=== PATIENT | female | born 1970 | race Caucasian/White ===

== ENCOUNTER 2023-11-20 13:45 | Emergency (ER) | payer BC, SELFPAY ==
[2023-11-20] VITALS (20 sets, daily range): BP systolic 105–145; BP diastolic 56–83; PULSE 106–131; RESP 16–34; TEMP 35.9; O2SAT 93–98; BMI 28.8
--- NOTE | 2023-11-20 14:09 | DI.RAD.S_ITS ---
PROCEDURE: XR CHEST 1V INDICATIONS: suspected sepsis TECHNIQUE: One view of the chest was acquired. COMPARISON: None. FINDINGS: Surgical changes and devices: None. Lungs and pleura: Lungs are clear. No pleural effusions or pneumothorax. Mediastinum: Mediastinal contours appear normal. Heart size is normal. Bones and chest wall: No suspicious bony lesions. Overlying soft tissues appear unremarkable. IMPRESSION: No acute cardiopulmonary abnormality is seen. Dictated by: Terry Cason M.D. on 11/20/2023 at 14:45 Approved by: Terry Cason M.D. on 11/20/2023 at 14:45
[2023-11-20 14:23] LABS: Hematocrit 43.1 % (36-46); Hemoglobin 14.4 g/dL (12.0-16.0); Mean Corpuscular HGB Conc 33.4 % (30-36); Mean Corpuscular Hemoglobin 30.6 PG (26-34); Mean Corpuscular Volume 91.7 fL (80-100); Platelet Count 166 X10^3/uL (150-400); Red Cell Distribution Width 15.1 % (11.6-14.8)
[2023-11-20 14:26] LABS: Add Manual Diff / Slide Review YES; White Blood Cell Count 104.7 X10^3/uL (4.5-11.0)
[2023-11-20 14:37] LABS: INR 1.2 (0.9-1.3); Prothrombin Time 13.6 SECONDS (9.4-12.5)
[2023-11-20 14:40] LABS: PTT Partial Thromboplastin Tim 32 SECONDS (25.1-36.5)
[2023-11-20 14:47] LABS: Alanine Aminotransferase 211 IU/L (<35); Albumin 3.7 g/dL (3.5-5.0); Albumin Globulin Ratio 1.1 (1.0-2.8); Alkaline Phosphatase 509 U/L (38-126); Aspartate Aminotransferase 276 IU/L (14-36); BUN Creatinine Ratio 5.9 (6-22); Bilirubin Total 1.4 mg/dL (0.2-1.3); Blood Urea Nitrogen 6 mg/dL (7-17); Calcium 8.6 mg/dL (8.4-10.2); Carbon Dioxide 27 mmol/L (22-32); Chloride 98 mmol/L (98-107); Estimated Glomerular Filt Rate > 60 mL/min (>60); Globulin 3.5 g/dL (1.7-4.1); Glucose 96 mg/dL (70-100); HEMOLYSIS < 15 (0-50); Lipase 40 U/L (23-300); Potassium 4.6 mmol/L (3.4-5.1); Sodium 136 mmol/L (137-145); Total Protein 7.2 g/dL (6.3-8.2)
[2023-11-20 15:03] LABS: Procalcitonin 0.313 ng/mL (<0.5)
[2023-11-20 15:04] LABS: Lymphocytes Percent Manual 19.5 % (25-45); Monocytes Percent Manual 50.5 % (2-11); Neutrophils Absolute Manual 30363 /uL (3000-5900); Total Cells Counted 200
[2023-11-20 15:08] LABS: RBC Morphology Normal Morphology; Rouleaux 1+; Smudge Cells 4+
[2023-11-20] MEDS: SODIUM CHLORIDE 0.9% 1,000 ML 1000 ML IV ×3 (15:10→21:36)
[2023-11-20 15:20] LABS: Lactate (Lactic Acid) 2.8 mmol/L (0.7-2.1)
[2023-11-20 16:04] LABS: Strep Grp A by PCR Rapid Negative (Negative)
--- NOTE | 2023-11-20 16:05 | PC.NURSE ---
Pt has diffuse rash to trunk dry and itchy
--- NOTE | 2023-11-20 16:39 | ED.NAVMDI ---
HPI - Nausea/Vomiting/Diarrhea <Aj Mahoney MD - Last Filed: 11/21/23 20:42> General Chief complaint: Nausea/Vomiting/Diarrhea Stated complaint: severe dehydrated, vomiting Time Seen by Provider: 11/20/23 16:39 Source: patient Mode of arrival: Ambulatory History of Present Illness HPI Narrative: 53-year-old female who has residence in [place], travels seasonally with her to sail in in the [facility], most recently sailing in the [facility], has had ongoing sore throat symptoms for the least the last 1 week, tonsils swollen, they had telemedicine consultation about 1 month ago with clinical diagnosis of possible strep throat infection, penicillin prescribed for 10 days which was completed about 2 weeks ago, since that time having persisting sore throat and presented to the emergency department at [facility] strep screen and Monospot were negative at that time, now having painful itchy rash for the last 10 days, truncal, some redness around the eyes, sore throat symptoms, sensation of tongue swelling. No known history of cancers or elevated white blood cell count before. No recent steroid medications. She does not have nausea or vomiting or diarrhea. She has not have chest pain or shortness of breath. She has not had cancers of the lymphatic system known before. She does not believe she has had elevated white blood cell count labs before. Related Data Allergies Allergy/AdvReac Type Severity Reaction Status Date / Time No Known Drug Allergies Allergy Verified 11/20/23 13:59 Review of Systems <Aj Mahoney MD - Last Filed: 11/21/23 20:42> Review of Systems Narrative: see HPI Patient History <Aj Mahoney MD - Last Filed: 11/21/23 20:42> Social History Smoking Status: Never smoker Smoking Status: Never smoker alcohol intake frequency: a few times a week Substance Use Type: does not use Exam <Aj Mahoney MD - Last Filed: 11/21/23 20:42> Initial Vital Signs Initial Vital Signs: Vital Signs Temperature 96.6 F L 11/20/23 13:59 Pulse Rate 131 H 11/20/23 13:59 Respiratory Rate 16 11/20/23 13:59 Blood Pressure 117/57 L 11/20/23 13:59 Pulse Oximetry 97 11/20/23 13:59 Oxygen Delivery Method Room Air 11/20/23 13:59 <Agatha Walton MD - Last Filed: 11/25/23 08:39> Initial Vital Signs Initial Vital Signs: Vital Signs Temperature 96.6 F L 11/20/23 13:59 Pulse Rate 131 H 11/20/23 13:59 Respiratory Rate 16 11/20/23 13:59 Blood Pressure 117/57 L 11/20/23 13:59 Pulse Oximetry 97 11/20/23 13:59 Oxygen Delivery Method Room Air 11/20/23 13:59 Course <Aj Mahoney MD - Last Filed: 11/21/23 20:42> Orders Ordered: Discontinued Medications Hydromorphone HCl (Hydromorphone 0.5 Mg Inj) 0.5 mg IV Q15MIN PRN PRN Reason: Pain, Sodium Chloride (Normal Saline 0.9%) 1,000 mls @ 1,000 mls/hr IV BOLUS ONE Stop: 11/20/23 15:08 Last Infusion: 11/20/23 15:54 Dose: Infused Documented By: [facility] Admin: 11/20/23 15:10 Dose: 1,000 mls/hr Documented By: [facility] Sodium Chloride (Normal Saline 0.9%) 1,000 mls @ 1,000 mls/hr IV BOLUS ONE Stop: 11/20/23 16:52 Last Infusion: 11/20/23 17:07 Dose: Infused Documented By: [facility] Admin: 11/20/23 15:54 Dose: 1,000 mls/hr Documented By: [facility] Ceftriaxone Sodium 1,000 mg/ (Sodium Chloride) 100 mls @ 200 mls/hr IV NOW ONE Stop: 11/20/23 16:41 Last Infusion: 11/20/23 17:20 Dose: Infused Documented By: [facility] Admin: 11/20/23 16:48 Dose: 200 mls/hr Documented By: [facility] Sodium Chloride (Normal Saline 0.9%) 1,000 mls @ 1,000 mls/hr IV BOLUS ONE Stop: 11/20/23 22:02 Last Infusion: 11/20/23 22:53 Dose: Infused Documented By: [facility] Admin: 11/20/23 21:36 Dose: 1,000 mls/hr Documented By: [facility] Lamotrigine (Lamotrigine 100 Mg Tablet) 100 mg PO NOW ONE Stop: 11/20/23 21:33 Last Admin: 11/20/23 22:16 Dose: Not Given Documented By: ELIZABETH Lorazepam (Lorazepam 2 Mg/Ml Inj) 0.5 mg IV NOW ONE Stop: 11/20/23 21:33 Last Admin: 11/20/23 21:45 Dose: 0.5 mg Documented By: ELIZABETH Methylprednisolone (Methylprednisolone 125 Mg/2 Ml Vial) 125 mg IV NOW ONE Stop: 11/20/23 21:03 Last Admin: 11/20/23 21:35 Dose: 125 mg Documented By: ELIZABETH Methylprednisolone (Methylprednisolone 125 Mg/2 Ml Vial) 60 mg IV NOW ONE Stop: 11/21/23 07:16 Last Admin: 11/21/23 07:42 Dose: 60 mg Documented By: KONSTANTIN Methylprednisolone (Methylprednisolone 125 Mg/2 Ml Vial) 80 mg IV NOW ONE Stop: 11/21/23 14:33 Last Admin: 11/21/23 14:59 Dose: 80 mg Documented By: ALIA Ondansetron HCl (Ondansetron 4 Mg/2 Ml Inj) 4 mg IV NOW PRN PRN Reason: Nausea And Vomiting Ondansetron HCl (Ondansetron 4 Mg Odt) 4 mg SL NOW PRN PRN Reason: Nausea And Vomiting Sertraline HCl (Sertraline 50 Mg Tablet) 25 mg PO BEDTIME PRISCILA Last Admin: 11/20/23 22:22 Dose: 25 mg Documented By: ELIZABETH Vital Signs Vital signs: Vital Signs - 8 hr 11/21/23 13:00 11/21/23 13:02 11/21/23 13:02 Pulse Rate 110 H 107 H Respiratory Rate 24 22 Blood Pressure 133/70 Pulse Oximetry 91 95 11/21/23 14:00 11/21/23 14:26 11/21/23 14:26 Pulse Rate 106 H 117 H Respiratory Rate 25 H 29 H Blood Pressure 127/84 Pulse Oximetry 94 94 <Agatha Walton MD - Last Filed: 11/25/23 08:39> Orders Ordered: Discontinued Medications Hydromorphone HCl (Hydromorphone 0.5 Mg Inj) 0.5 mg IV Q15MIN PRN PRN Reason: Pain, Sodium Chloride (Normal Saline 0.9%) 1,000 mls @ 1,000 mls/hr IV BOLUS ONE Stop: 11/20/23 15:08 Last Infusion: 11/20/23 15:54 Dose: Infused Documented By: [facility] Admin: 11/20/23 15:10 Dose: 1,000 mls/hr Documented By: [facility] Sodium Chloride (Normal Saline 0.9%) 1,000 mls @ 1,000 mls/hr IV BOLUS ONE Stop: 11/20/23 16:52 Last Infusion: 11/20/23 17:07 Dose: Infused Documented By: [facility] Admin: 11/20/23 15:54 Dose: 1,000 mls/hr Documented By: [facility] Ceftriaxone Sodium 1,000 mg/ (Sodium Chloride) 100 mls @ 200 mls/hr IV NOW ONE Stop: 11/20/23 16:41 Last Infusion: 11/20/23 17:20 Dose: Infused Documented By: [facility] Admin: 11/20/23 16:48 Dose: 200 mls/hr Documented By: [facility] Sodium Chloride (Normal Saline 0.9%) 1,000 mls @ 1,000 mls/hr IV BOLUS ONE Stop: 11/20/23 22:02 Last Infusion: 11/20/23 22:53 Dose: Infused Documented By: [facility] Admin: 11/20/23 21:36 Dose: 1,000 mls/hr Documented By: ELIZABETH Lamotrigine (Lamotrigine 100 Mg Tablet) 100 mg PO NOW ONE Stop: 11/20/23 21:33 Last Admin: 11/20/23 22:16 Dose: Not Given Documented By: ELIZABETH Lorazepam (Lorazepam 2 Mg/Ml Inj) 0.5 mg IV NOW ONE Stop: 11/20/23 21:33 Last Admin: 11/20/23 21:45 Dose: 0.5 mg Documented By: ELIZABETH Methylprednisolone (Methylprednisolone 125 Mg/2 Ml Vial) 125 mg IV NOW ONE Stop: 11/20/23 21:03 Last Admin: 11/20/23 21:35 Dose: 125 mg Documented By: ELIZABETH Methylprednisolone (Methylprednisolone 125 Mg/2 Ml Vial) 60 mg IV NOW ONE Stop: 11/21/23 07:16 Last Admin: 11/21/23 07:42 Dose: 60 mg Documented By: KONSTANTIN Methylprednisolone (Methylprednisolone 125 Mg/2 Ml Vial) 80 mg IV NOW ONE Stop: 11/21/23 14:33 Last Admin: 11/21/23 14:59 Dose: 80 mg Documented By: ALIA Ondansetron HCl (Ondansetron 4 Mg/2 Ml Inj) 4 mg IV NOW PRN PRN Reason: Nausea And Vomiting Ondansetron HCl (Ondansetron 4 Mg Odt) 4 mg SL NOW PRN PRN Reason: Nausea And Vomiting Sertraline HCl (Sertraline 50 Mg Tablet) 25 mg PO BEDTIME [facility] Last Admin: 11/20/23 22:22 Dose: 25 mg Documented By: [facility] Vital Signs Vital signs: Vital Signs - 8 hr 11/21/23 13:00 11/21/23 13:02 11/21/23 13:02 Pulse Rate 110 H 107 H Respiratory Rate 24 22 Blood Pressure 133/70 Pulse Oximetry 91 95 11/21/23 14:00 11/21/23 14:26 11/21/23 14:26 Pulse Rate 106 H 117 H Respiratory Rate 25 H 29 H Blood Pressure 127/84 Pulse Oximetry 94 94 MDM - Nausea/Vomiting/Diarrhea <Aj Mahoney MD - Last Filed: 11/21/23 20:42> Lab Data Attestation: I reviewed the patient's lab results. 11/21/23 05:55 11/21/23 05:55 Labs: Lab Results 11/20/23 11/20/23 11/20/23 Range/Units 10:15 14:05 14:41 WBC 104.7 H* (4.5-11.0) X10^3/uL RBC 4.70 (4.0-5.2) X10^6/uL Hgb 14.4 (12.0-16.0) g/dL Hct 43.1 (36-46) % MCV 91.7 (80-100) fL MCH 30.6 (26-34) PG MCHC 33.4 (30-36) % RDW 15.1 H (11.6-14.8) % Plt Count 166 (150-400) X10^3/uL Neut % (Auto) Not Reportable Lymph % (Auto) Not Reportable [place] % (Auto) Not Reportable Eos % (Auto) Not Reportable Baso % (Auto) Not Reportable Neut # (Auto) (1062-4705) /uL Lymph # (Auto) Not Reportable [place] # (Auto) Not Reportable Eos # (Auto) (0-450) /uL Baso # (Auto) Not Reportable Total Counted 200 Seg Neutrophils % 29.0 L (38-70) % Lymphocytes % (Manual) 19.5 L (25-45) % Atypical Lymphs % 1.0 H ( - 0) % Monocytes % (Manual) 50.5 H (2-11) % Neutrophils # (Manual) 28275 H (5073-1797) /uL Smudge Cells 4+ H RBC Morphology Normal morphology Anisocytosis Rouleaux 1+ H Smear Path Review PT 13.6 H (9.4-12.5) SECONDS INR 1.2 (0.9-1.3) APTT 32 (25.1-36.5) SECONDS Fibrinogen (238-498) mg/dL Sodium 136 L (137-145) mmol/L Potassium 4.6 (3.4-5.1) mmol/L Chloride 98 (98-107) mmol/L Carbon Dioxide 27 (22-32) mmol/L BUN 6 L (7-17) mg/dL Creatinine 1.01 (0.52-1.04) mg/dL Estimated GFR > 60 (>60) mL/min BUN/Creatinine Ratio 5.9 L (6-22) Glucose 96 (70-100) mg/dL Lactate 2.8 H (0.7-2.1) mmol/L Uric Acid (2.5-6.2) mg/dL Calcium 8.6 (8.4-10.2) mg/dL Total Bilirubin 1.4 H (0.2-1.3) mg/dL AST 276 H (14-36) IU/L ALT 211 H (<35) IU/L Alkaline Phosphatase 509 H (38-126) U/L Lactate Dehydrogenase (120-246) U/L C-Reactive Protein (<1.0) mg/dL Total Protein 7.2 (6.3-8.2) g/dL Albumin 3.7 (3.5-5.0) g/dL Globulin 3.5 (1.7-4.1) g/dL Albumin/Globulin Ratio 1.1 (1.0-2.8) Lipase 40 (23-300) U/L Procalcitonin 0.313 (<0.5) ng/mL Ur Bilirubin Confirm Positive H (Negative) Urine RBC None seen (0-5/HPF) Urine WBC 5-10/hpf H (0-5/HPF) Ur Squamous Epith Cells 5-10 /hpf H (0-5/HPF) Ur Transition Epith Cell 1-5/hpf (0-5/HPF) Urine Bacteria Moderate (10-30) H (None) Hyaline Casts 30-100/lpf (None) Vol Urine Centrifuged Low vol <10ml (spun) A Leuk/Lymph Viability Leuk/Lym Sample Descrip Leuk/Lym Gating Strategy Leuk/Lym Comment Leuk/Lym Immunophen Prof Leuk/Lym Phenotype Chart L/L Sign Pathologist CLL Flow Interpret A.calcoaceticus-baumannii cmplx PCR (Not Detect) Chlamy pneumoniae PCR (Not Detect) Adenovirus (PCR) (Not Detect) Bacteroides fragilis (Not Detect) B.parapertussis DNA PCR (Not Detecte) Wanda albicans (PCR) (Not Detect) Wanda auris (PCR) (Not Detect) C. glabrata (PCR) (Not Detect) C. krusei (PCR) (Not Detect) C. parapsilosis (PCR) (Not Detect) C. tropicalis (PCR) (Not Detect) Coronavirus OC43 (PCR) (Not Detect) Coronavirus HKU1 (PCR) (Not Detect) Coronavirus 229E (PCR) (Not Detect) SARS-CoV-2 (PCR) (Not Detecte) Coronavirus NL63 (PCR) (Not Detect) C. neoform/gattii (PCR) (Not Detect) Enterobacterales (PCR) (Not Detect) E. cloacae complex PCR (Not Detect) Enterococc faecalis PCR (Not Detect) Enterococc faecium PCR (Not Detect) E. coli (PCR) (Not Detect) H. influenzae (PCR) (Not Detect) Hepatitis A IgM Ab (Negative) Hep Bs Antigen (Negative) Hep B Core IgM Ab (Negative) Hepatitis C Antibody (Non Reactive) Hep C Ab Signal/Cutoff (.) Human Metapneumovir PCR (Not Detect) Influenza Type A (PCR) (Not Detect) Influenza Type B (PCR) (Not Detect) Klebsiella aerogenes (PCR) (Not Detect) Klebsiella oxytoca PCR (Not Detect) Klebsiella pneumoniae (Not Detect) List. monocytogenes PCR (Not Detect) M. pneumoniae (PCR) (Not Detect) N. meningitidis (PCR) (Not Detect) Parainfluenza 1 (PCR) (Not Detect) Parainfluenza 2 (PCR) (Not Detect) Parainfluenza 3 (PCR) (Not Detect) Parainfluenza 4 (PCR) (Not Detect) Proteus species (PCR) (Not Detect) RSV (PCR) (Not Detect) Entero/Rhino (PCR) (Not Detect) Salmonella spp. (PCR) (Not Detect) Serratia marcescens PCR (Not Detect) Staphylococcus sp PCR (Not Detect) Staph aureus (PCR) (Not Detect) mecA/C & MREJ Resist Gene (Not Detect) mecA/C-Methicil Resis Gene (Not Detect) mcr-1 Colistin Res Gene PCR (Not Detect) Staph epidermidis (PCR) (Not Detect) Staph lugdunensis PCR (Not Detect) S. maltophilia (PCR) (Not Detect) Streptococcus sp PCR (Not Detect) Group A Strep (PCR) (Not Detect) Strep agalactiae (PCR) (Not Detect) Strep pneumoniae (PCR) (Not Detect) P. aeruginosa (PCR) (Not Detect) Joelle/B-Vanco Res Genes (Not Detect) blaIMP Car res Gene PCR (Not Detect) KPC-Carbap Res Gene PCR (Not Detect) blaNDM Car Res Gene PCR (Not Detect) OXA-48 Carbapenem Resis Gene (PCR) (Not Detect) blaVIM Car Res Gene PCR (Not Detect) CTX-M Gene Resistance (PCR) (Not Detect) CLL (FISH) Add Info CLL Prog Comp Assess 11/20/23 11/20/23 11/20/23 Range/Units 14:51 15:15 15:50 WBC (4.5-11.0) X10^3/uL RBC (4.0-5.2) X10^6/uL Hgb (12.0-16.0) g/dL Hct (36-46) % MCV (80-100) fL MCH (26-34) PG MCHC (30-36) % RDW (11.6-14.8) % Plt Count (150-400) X10^3/uL Neut % (Auto) Lymph % (Auto) [place] % (Auto) Eos % (Auto) Baso % (Auto) Neut # (Auto) (2965-0558) /uL Lymph # (Auto) [place] # (Auto) Eos # (Auto) (0-450) /uL Baso # (Auto) Total Counted Seg Neutrophils % (38-70) % Lymphocytes % (Manual) (25-45) % Atypical Lymphs % ( - 0) % Monocytes % (Manual) (2-11) % Neutrophils # (Manual) (8468-7829) /uL Smudge Cells RBC Morphology Anisocytosis Rouleaux Smear Path Review PT (9.4-12.5) SECONDS INR (0.9-1.3) APTT (25.1-36.5) SECONDS Fibrinogen (238-498) mg/dL Sodium (137-145) mmol/L Potassium (3.4-5.1) mmol/L Chloride (98-107) mmol/L Carbon Dioxide (22-32) mmol/L BUN (7-17) mg/dL Creatinine (0.52-1.04) mg/dL Estimated GFR (>60) mL/min BUN/Creatinine Ratio (6-22) Glucose (70-100) mg/dL Lactate (0.7-2.1) mmol/L Uric Acid (2.5-6.2) mg/dL Calcium (8.4-10.2) mg/dL Total Bilirubin (0.2-1.3) mg/dL AST (14-36) IU/L ALT (<35) IU/L Alkaline Phosphatase (38-126) U/L Lactate Dehydrogenase (120-246) U/L C-Reactive Protein (<1.0) mg/dL Total Protein (6.3-8.2) g/dL Albumin (3.5-5.0) g/dL Globulin (1.7-4.1) g/dL Albumin/Globulin Ratio (1.0-2.8) Lipase (23-300) U/L Procalcitonin (<0.5) ng/mL Ur Bilirubin Confirm (Negative) Urine RBC (0-5/HPF) Urine WBC (0-5/HPF) Ur Squamous Epith Cells (0-5/HPF) Ur Transition Epith Cell (0-5/HPF) Urine Bacteria (None) Hyaline Casts (None) Vol Urine Centrifuged Leuk/Lymph Viability Leuk/Lym Sample Descrip Leuk/Lym Gating Strategy Leuk/Lym Comment Leuk/Lym Immunophen Prof Leuk/Lym Phenotype Chart L/L Sign Pathologist CLL Flow Interpret A.calcoaceticus-baumannii cmplx PCR Not detected (Not Detect) Chlamy pneumoniae PCR Not detected (Not Detect) Adenovirus (PCR) Not detected (Not Detect) Bacteroides fragilis Not detected (Not Detect) B.parapertussis DNA PCR Not detected (Not Detecte) Wanda albicans (PCR) Not detected (Not Detect) Wanda auris (PCR) Not detected (Not Detect) C. glabrata (PCR) Not detected (Not Detect) C. krusei (PCR) Not detected (Not Detect) C. parapsilosis (PCR) Not detected (Not Detect) C. tropicalis (PCR) Not detected (Not Detect) Coronavirus OC43 (PCR) Not detected (Not Detect) Coronavirus HKU1 (PCR) Not detected (Not Detect) Coronavirus 229E (PCR) Not detected (Not Detect) SARS-CoV-2 (PCR) Not detected (Not Detecte) Coronavirus NL63 (PCR) Not detected (Not Detect) C. neoform/gattii (PCR) Not detected (Not Detect) Enterobacterales (PCR) Not detected (Not Detect) E. cloacae complex PCR Not detected (Not Detect) Enterococc faecalis PCR Not detected (Not Detect) Enterococc faecium PCR Not detected (Not Detect) E. coli (PCR) Not detected (Not Detect) H. influenzae (PCR) Not detected (Not Detect) Hepatitis A IgM Ab (Negative) Hep Bs Antigen (Negative) Hep B Core IgM Ab (Negative) Hepatitis C Antibody (Non Reactive) Hep C Ab Signal/Cutoff (.) Human Metapneumovir PCR Not detected (Not Detect) Influenza Type A (PCR) Not detected (Not Detect) Influenza Type B (PCR) Not detected (Not Detect) Klebsiella aerogenes (PCR) Not detected (Not Detect) Klebsiella oxytoca PCR Not detected (Not Detect) Klebsiella pneumoniae Not detected (Not Detect) List. monocytogenes PCR Not detected (Not Detect) M. pneumoniae (PCR) Not detected (Not Detect) N. meningitidis (PCR) Not detected (Not Detect) Parainfluenza 1 (PCR) Not detected (Not Detect) Parainfluenza 2 (PCR) Not detected (Not Detect) Parainfluenza 3 (PCR) Not detected (Not Detect) Parainfluenza 4 (PCR) Not detected (Not Detect) Proteus species (PCR) Not detected (Not Detect) RSV (PCR) Not detected (Not Detect) Entero/Rhino (PCR) Not detected (Not Detect) Salmonella spp. (PCR) Not detected (Not Detect) Serratia marcescens PCR Not detected (Not Detect) Staphylococcus sp PCR Detected (Not Detect) Staph aureus (PCR) Not detected (Not Detect) mecA/C & MREJ Resist Gene Not applicable (Not Detect) mecA/C-Methicil Resis Gene Not detected (Not Detect) mcr-1 Colistin Res Gene PCR Not applicable (Not Detect) Staph epidermidis (PCR) Detected (Not Detect) Staph lugdunensis PCR Not detected (Not Detect) S. maltophilia (PCR) Not detected (Not Detect) Streptococcus sp PCR Not detected (Not Detect) Group A Strep (PCR) Not detected Negative (Not Detect) Strep agalactiae (PCR) Not detected (Not Detect) Strep pneumoniae (PCR) Not detected (Not Detect) P. aeruginosa (PCR) Not detected (Not Detect) Joelle/B-Vanco Res Genes Not applicable (Not Detect) blaIMP Car res Gene PCR Not applicable (Not Detect) KPC-Carbap Res Gene PCR Not applicable (Not Detect) blaNDM Car Res Gene PCR Not applicable (Not Detect) OXA-48 Carbapenem Resis Gene (PCR) Not applicable (Not Detect) blaVIM Car Res Gene PCR Not applicable (Not Detect) CTX-M Gene Resistance (PCR) Not applicable (Not Detect) CLL (FISH) Add Info CLL Prog Comp Assess 11/20/23 11/20/23 11/20/23 Range/Units 17:00 19:59 22:30 WBC 111.9 H* (4.5-11.0) X10^3/uL RBC 4.23 (4.0-5.2) X10^6/uL Hgb 12.8 (12.0-16.0) g/dL Hct 39.3 (36-46) % MCV 93.1 (80-100) fL MCH 30.3 (26-34) PG MCHC 32.6 (30-36) % RDW 15.3 H (11.6-14.8) % Plt Count 149 L (150-400) X10^3/uL Neut % (Auto) Not Reportable Lymph % (Auto) Not Reportable [place] % (Auto) Not Reportable Eos % (Auto) Not Reportable Baso % (Auto) Not Reportable Neut # (Auto) (3341-1314) /uL Lymph # (Auto) Not Reportable [place] # (Auto) Not Reportable Eos # (Auto) (0-450) /uL Baso # (Auto) Not Reportable Total Counted 100 Seg Neutrophils % 19.0 L (38-70) % Lymphocytes % (Manual) 33.0 (25-45) % Atypical Lymphs % 6.0 H ( - 0) % Monocytes % (Manual) 42.0 H (2-11) % Neutrophils # (Manual) 53263 H (9374-7761) /uL Smudge Cells 3+ H RBC Morphology Normal morphology Anisocytosis Rouleaux Smear Path Review PT (9.4-12.5) SECONDS INR (0.9-1.3) APTT (25.1-36.5) SECONDS Fibrinogen 185 L (238-498) mg/dL Sodium (137-145) mmol/L Potassium (3.4-5.1) mmol/L Chloride (98-107) mmol/L Carbon Dioxide (22-32) mmol/L BUN (7-17) mg/dL Creatinine (0.52-1.04) mg/dL Estimated GFR (>60) mL/min BUN/Creatinine Ratio (6-22) Glucose (70-100) mg/dL Lactate 2.1 1.8 (0.7-2.1) mmol/L Uric Acid 6.7 H (2.5-6.2) mg/dL Calcium (8.4-10.2) mg/dL Total Bilirubin (0.2-1.3) mg/dL AST (14-36) IU/L ALT (<35) IU/L Alkaline Phosphatase (38-126) U/L Lactate Dehydrogenase 1512 H (120-246) U/L C-Reactive Protein 3.3 H (<1.0) mg/dL Total Protein (6.3-8.2) g/dL Albumin (3.5-5.0) g/dL Globulin (1.7-4.1) g/dL Albumin/Globulin Ratio (1.0-2.8) Lipase (23-300) U/L Procalcitonin (<0.5) ng/mL Ur Bilirubin Confirm (Negative) Urine RBC (0-5/HPF) Urine WBC (0-5/HPF) Ur Squamous Epith Cells (0-5/HPF) Ur Transition Epith Cell (0-5/HPF) Urine Bacteria (None) Hyaline Casts (None) Vol Urine Centrifuged Leuk/Lymph Viability Not Reportable Leuk/Lym Sample Descrip Not Reportable Leuk/Lym Gating Strategy Not Reportable Leuk/Lym Comment Not Reportable Leuk/Lym Immunophen Prof Not Reportable Leuk/Lym Phenotype Chart Not Reportable L/L Sign Pathologist CLL Flow Interpret Not Reportable A.calcoaceticus-baumannii cmplx PCR (Not Detect) Chlamy pneumoniae PCR (Not Detect) Adenovirus (PCR) (Not Detect) Bacteroides fragilis (Not Detect) B.parapertussis DNA PCR (Not Detecte) Wanda albicans (PCR) (Not Detect) Wanda auris (PCR) (Not Detect) C. glabrata (PCR) (Not Detect) C. krusei (PCR) (Not Detect) C. parapsilosis (PCR) (Not Detect) C. tropicalis (PCR) (Not Detect) Coronavirus OC43 (PCR) (Not Detect) Coronavirus HKU1 (PCR) (Not Detect) Coronavirus 229E (PCR) (Not Detect) SARS-CoV-2 (PCR) (Not Detecte) Coronavirus NL63 (PCR) (Not Detect) C. neoform/gattii (PCR) (Not Detect) Enterobacterales (PCR) (Not Detect) E. cloacae complex PCR (Not Detect) Enterococc faecalis PCR (Not Detect) Enterococc faecium PCR (Not Detect) E. coli (PCR) (Not Detect) H. influenzae (PCR) (Not Detect) Hepatitis A IgM Ab Negative (Negative) Hep Bs Antigen Negative (Negative) Hep B Core IgM Ab Negative (Negative) Hepatitis C Antibody Non reactive (Non Reactive) Hep C Ab Signal/Cutoff Comment (.) Human Metapneumovir PCR (Not Detect) Influenza Type A (PCR) (Not Detect) Influenza Type B (PCR) (Not Detect) Klebsiella aerogenes (PCR) (Not Detect) Klebsiella oxytoca PCR (Not Detect) Klebsiella pneumoniae (Not Detect) List. monocytogenes PCR (Not Detect) M. pneumoniae (PCR) (Not Detect) N. meningitidis (PCR) (Not Detect) Parainfluenza 1 (PCR) (Not Detect) Parainfluenza 2 (PCR) (Not Detect) Parainfluenza 3 (PCR) (Not Detect) Parainfluenza 4 (PCR) (Not Detect) Proteus species (PCR) (Not Detect) RSV (PCR) (Not Detect) Entero/Rhino (PCR) (Not Detect) Salmonella spp. (PCR) (Not Detect) Serratia marcescens PCR (Not Detect) Staphylococcus sp PCR (Not Detect) Staph aureus (PCR) (Not Detect) mecA/C & MREJ Resist Gene (Not Detect) mecA/C-Methicil Resis Gene (Not Detect) mcr-1 Colistin Res Gene PCR (Not Detect) Staph epidermidis (PCR) (Not Detect) Staph lugdunensis PCR (Not Detect) S. maltophilia (PCR) (Not Detect) Streptococcus sp PCR (Not Detect) Group A Strep (PCR) (Not Detect) Strep agalactiae (PCR) (Not Detect) Strep pneumoniae (PCR) (Not Detect) P. aeruginosa (PCR) (Not Detect) Joelle/B-Vanco Res Genes (Not Detect) blaIMP Car res Gene PCR (Not Detect) KPC-Carbap Res Gene PCR (Not Detect) blaNDM Car Res Gene PCR (Not Detect) OXA-48 Carbapenem Resis Gene (PCR) (Not Detect) blaVIM Car Res Gene PCR (Not Detect) CTX-M Gene Resistance (PCR) (Not Detect) CLL (FISH) Add Info Not Reportable CLL Prog Comp Assess Not Reportable 11/21/23 Range/Units 05:55 WBC 102.4 H* (4.5-11.0) X10^3/uL RBC 4.12 (4.0-5.2) X10^6/uL Hgb 12.6 (12.0-16.0) g/dL Hct 38.0 (36-46) % MCV 92.1 (80-100) fL MCH 30.5 (26-34) PG MCHC 33.1 (30-36) % RDW 15.1 H (11.6-14.8) % Plt Count 141 L (150-400) X10^3/uL Neut % (Auto) 17.1 L Lymph % (Auto) 79.0 H [place] % (Auto) 1.2 L Eos % (Auto) 0.3 L Baso % (Auto) 2.4 H Neut # (Auto) 18 L (0017-1383) /uL Lymph # (Auto) 81 L [place] # (Auto) 1 Eos # (Auto) 0 (0-450) /uL Baso # (Auto) 2 Total Counted 100 Seg Neutrophils % (38-70) % Lymphocytes % (Manual) (25-45) % Atypical Lymphs % ( - 0) % Monocytes % (Manual) (2-11) % Neutrophils # (Manual) 0 L (8089-7445) /uL Smudge Cells RBC Morphology Not Reportable Anisocytosis 1+ H Rouleaux Smear Path Review PT (9.4-12.5) SECONDS INR (0.9-1.3) APTT (25.1-36.5) SECONDS Fibrinogen (238-498) mg/dL Sodium 136 L (137-145) mmol/L Potassium 5.0 (3.4-5.1) mmol/L Chloride 104 (98-107) mmol/L Carbon Dioxide 23 (22-32) mmol/L BUN 8 (7-17) mg/dL Creatinine 0.75 (0.52-1.04) mg/dL Estimated GFR > 60 (>60) mL/min BUN/Creatinine Ratio 10.7 (6-22) Glucose 134 H (70-100) mg/dL Lactate (0.7-2.1) mmol/L Uric Acid (2.5-6.2) mg/dL Calcium 7.6 L (8.4-10.2) mg/dL Total Bilirubin 1.0 (0.2-1.3) mg/dL AST 236 H (14-36) IU/L ALT 185 H (<35) IU/L Alkaline Phosphatase 391 H (38-126) U/L Lactate Dehydrogenase (120-246) U/L C-Reactive Protein (<1.0) mg/dL Total Protein 6.1 L (6.3-8.2) g/dL Albumin 2.9 L (3.5-5.0) g/dL Globulin 3.2 (1.7-4.1) g/dL Albumin/Globulin Ratio 0.9 L (1.0-2.8) Lipase (23-300) U/L Procalcitonin (<0.5) ng/mL Ur Bilirubin Confirm (Negative) Urine RBC (0-5/HPF) Urine WBC (0-5/HPF) Ur Squamous Epith Cells (0-5/HPF) Ur Transition Epith Cell (0-5/HPF) Urine Bacteria (None) Hyaline Casts (None) Vol Urine Centrifuged Leuk/Lymph Viability Leuk/Lym Sample Descrip Leuk/Lym Gating Strategy Leuk/Lym Comment Leuk/Lym Immunophen Prof Leuk/Lym Phenotype Chart L/L Sign Pathologist CLL Flow Interpret A.calcoaceticus-baumannii cmplx PCR (Not Detect) Chlamy pneumoniae PCR (Not Detect) Adenovirus (PCR) (Not Detect) Bacteroides fragilis (Not Detect) B.parapertussis DNA PCR (Not Detecte) Wanda albicans (PCR) (Not Detect) Wanda auris (PCR) (Not Detect) C. glabrata (PCR) (Not Detect) C. krusei (PCR) (Not Detect) C. parapsilosis (PCR) (Not Detect) C. tropicalis (PCR) (Not Detect) Coronavirus OC43 (PCR) (Not Detect) Coronavirus HKU1 (PCR) (Not Detect) Coronavirus 229E (PCR) (Not Detect) SARS-CoV-2 (PCR) (Not Detecte) Coronavirus NL63 (PCR) (Not Detect) C. neoform/gattii (PCR) (Not Detect) Enterobacterales (PCR) (Not Detect) E. cloacae complex PCR (Not Detect) Enterococc faecalis PCR (Not Detect) Enterococc faecium PCR (Not Detect) E. coli (PCR) (Not Detect) H. influenzae (PCR) (Not Detect) Hepatitis A IgM Ab (Negative) Hep Bs Antigen (Negative) Hep B Core IgM Ab (Negative) Hepatitis C Antibody (Non Reactive) Hep C Ab Signal/Cutoff (.) Human Metapneumovir PCR (Not Detect) Influenza Type A (PCR) (Not Detect) Influenza Type B (PCR) (Not Detect) Klebsiella aerogenes (PCR) (Not Detect) Klebsiella oxytoca PCR (Not Detect) Klebsiella pneumoniae (Not Detect) List. monocytogenes PCR (Not Detect) M. pneumoniae (PCR) (Not Detect) N. meningitidis (PCR) (Not Detect) Parainfluenza 1 (PCR) (Not Detect) Parainfluenza 2 (PCR) (Not Detect) Parainfluenza 3 (PCR) (Not Detect) Parainfluenza 4 (PCR) (Not Detect) Proteus species (PCR) (Not Detect) RSV (PCR) (Not Detect) Entero/Rhino (PCR) (Not Detect) Salmonella spp. (PCR) (Not Detect) Serratia marcescens PCR (Not Detect) Staphylococcus sp PCR (Not Detect) Staph aureus (PCR) (Not Detect) mecA/C & MREJ Resist Gene (Not Detect) mecA/C-Methicil Resis Gene (Not Detect) mcr-1 Colistin Res Gene PCR (Not Detect) Staph epidermidis (PCR) (Not Detect) Staph lugdunensis PCR (Not Detect) S. maltophilia (PCR) (Not Detect) Streptococcus sp PCR (Not Detect) Group A Strep (PCR) (Not Detect) Strep agalactiae (PCR) (Not Detect) Strep pneumoniae (PCR) (Not Detect) P. aeruginosa (PCR) (Not Detect) Joelle/B-Vanco Res Genes (Not Detect) blaIMP Car res Gene PCR (Not Detect) KPC-Carbap Res Gene PCR (Not Detect) blaNDM Car Res Gene PCR (Not Detect) OXA-48 Carbapenem Resis Gene (PCR) (Not Detect) blaVIM Car Res Gene PCR (Not Detect) CTX-M Gene Resistance (PCR) (Not Detect) CLL (FISH) Add Info CLL Prog Comp Assess Urine Dip Bedside Urine Glucose Negative Bedside Urine Bilirubin +++ 4 Bedside Urine Ketone ++ 40 Urine Specific [place]ley 1.020 Bedside Urine Occult Blood - Negative Bedside Urine pH 6.0 Bedside Urine Protein ++ 100 Bedside Urine Urobilinogen 1+ 2mg Bedside Urine Nitrite + Positive Bedside Urine Leukocytes + 70 Esterase Imaging Data Chest x-ray: Radiologist's Impression: Close Chest X-Ray (Signed) Terry Cason - 11/20/[address] [address] XRay Report Signed Patient: Funmilayo Castro MR#: [id number] : 1970 Acct:[id number] Age/Sex: 53 / F Date of Service: 11/20/23 Loc: ED Accession Number: [id number] Procedure: XR chest 1V Ordering Provider: Aj Mahoney MD PROCEDURE: XR CHEST 1V INDICATIONS: suspected sepsis TECHNIQUE: One view of the chest was acquired. COMPARISON: None. FINDINGS: Surgical changes and devices: None. Lungs and pleura: Lungs are clear. No pleural effusions or pneumothorax. Mediastinum: Mediastinal contours appear normal. Heart size is normal. Bones and chest wall: No suspicious bony lesions. Overlying soft tissues appear unremarkable. IMPRESSION: No acute cardiopulmonary abnormality is seen. Dictated by: Terry Cason M.D. on 11/20/2023 at 14:45 Approved by: Terry Cason M.D. on 11/20/2023 at 14:45 [facility] Narrative Medical decision making narrative: 53-year-old female with about 4 weeks duration of sore throat symptoms, prior evaluation include rapid strep screen and Monospot negative, empiric trial of penicillin 10 day course from a telemedicine consult that was completed 2 weeks ago, having 10 days duration of diffuse rash and persisting sore throat symptoms. Maculopapular rash truncal, erythema periorbital with some lower lid edema but no scleral injection. Bacteriuria, urine culture requested, blood culture requested, IV ceftriaxone requested. White blood cell count [id number] markedly elevated, with differential 29% neutrophils, 19.5% lymphocytes, 1% atypical lymphocytes, 50% monocyte. No mention of abnormal nucleated cells. [facility] review of smear ordered[facility], case discussed with Aliya vences, clinical information relayed, waitlisted. BED CONTROL SPECIALIST reports [facility] is [facility], [email or web address]. [facility] not available currently due to saturation, [facility] not yet contacted. 1899, case discussed with /[facility] intake nurse, clinical information relayed, possible bed at [facility]. Requesting photo of the rash to be sent, to be e-mail attached and e-mailed to '[email or web address]' 1944, case discussed with hematology oncology Dr Angelo at [facility], including the differential, possible severe reactive leukocytosis, but does recommend patient have flow cytometry which cannot be done here, aware patient is wait listed, can consult if beds available. 2100, repeat white blood cell count 111k, not decreasing. Rash same. Nursing took photos rash and throat, attempting to e-send to . Patient still currently wait listed /[facility], [place], Aliya Burdick. No callback yet from [facility]. Signed out to Dr Walton. 946pm care is assumed. Patient is independently evaluated. Labs reviewed Very sore throat, treated with the amoxicillin now has total body rash with question of vasculitis, continued sore throat comes in for further evaluation dramatic leukocytosis with liver study abnormalities slightly elevated lactic acid. She is responded to fluids because there was a possibility of infectious etiology ceftriaxone is given, steroids are given with possibility of vasculitic allergic reaction. Extensive discussion with multiple hospitals trying to find a bed availability for this woman. At this point she remains tachycardic, slightly tachypneic blood pressure is 121/56. Still complaining of sore throat. 10pm Discussion with Dr Fede Dominguez, leukemia specialist at the [facility]. Reviewed all of the blood work. He noted that the findings were all mature cell lines. There was no evidence of blasts, severe anemia,and pt has normal H&H and normal renal function. He did not feel that this was an acute leukemia. Possibility DRESS syndrome given the rash and the liver abnormalities, his recommendation was adding uric acid, LDH, CRP, fibrinogen, viral hepatology panel as well as flow cytometry. He recommended adenovirus, HSV blood PCR testing that is not available at our hospital. Will talk with the medicine service at the [facility] and then discuss bed availability. All of these findings reviewed in detail with the patient and her . Questions were answered. She remains hemodynamically stable with no signs of impending respiratory distress. 1033pm Discussedw ith Dr Catie Lizarraga. Patient is accepted to [facility]. Anticipated bed availability in the morning. They will call back when bed is available. We will anticipate routine blood work of a CBC and CMP around 6:00 a.m. in the morning. Patient and her are notified of current plans, questions are answered. LDH Elevated 1512 CRP elevated 3.3 Uric acid elevated 6.7 Fibrinogen low 185 11/21/2023, 0700, Mahoney. Signed back out from Dr. Walton, interim overnight course above reviewed, interval consultation with leukemia specialist Dr Dominguez noted, repeat WBC 102 this morning decreased from 104 then 111 last night, possible DRESS Syndrome, patient accepted [facility]. Patient currently sleeping but nursing reports rash seems similar, repeat labs noted above, IV steroids have been added for vasculitis component. Reassumed care. Solu-Medrol 125 mg IV given at 2100 last night for possible vasculitis, repeat Solu-Medrol IV 60 mg for now, pending transfer to [facility] 1330, [facility] transport 3:00 p.m. for departure 1430, next dose IV Solu-Medrol 60 mg prescribed, prior to transfer <Agatha Walton MD - Last Filed: 11/25/23 08:39> Lab Data Labs: Lab Results 11/20/23 11/20/23 11/20/23 Range/Units 10:15 14:05 14:41 WBC 104.7 H* (4.5-11.0) X10^3/uL RBC 4.70 (4.0-5.2) X10^6/uL Hgb 14.4 (12.0-16.0) g/dL Hct 43.1 (36-46) % MCV 91.7 (80-100) fL MCH 30.6 (26-34) PG MCHC 33.4 (30-36) % RDW 15.1 H (11.6-14.8) % Plt Count 166 (150-400) X10^3/uL Neut % (Auto) Not Reportable Lymph % (Auto) Not Reportable [place] % (Auto) Not Reportable Eos % (Auto) Not Reportable Baso % (Auto) Not Reportable Neut # (Auto) (3139-3804) /uL Lymph # (Auto) Not Reportable [place] # (Auto) Not Reportable Eos # (Auto) (0-450) /uL Baso # (Auto) Not Reportable Total Counted 200 Seg Neutrophils % 29.0 L (38-70) % Lymphocytes % (Manual) 19.5 L (25-45) % Atypical Lymphs % 1.0 H ( - 0) % Monocytes % (Manual) 50.5 H (2-11) % Neutrophils # (Manual) 18906 H (4703-4193) /uL Smudge Cells 4+ H RBC Morphology Normal morphology Anisocytosis Rouleaux 1+ H Smear Path Review PT 13.6 H (9.4-12.5) SECONDS INR 1.2 (0.9-1.3) APTT 32 (25.1-36.5) SECONDS Fibrinogen (238-498) mg/dL Sodium 136 L (137-145) mmol/L Potassium 4.6 (3.4-5.1) mmol/L Chloride 98 (98-107) mmol/L Carbon Dioxide 27 (22-32) mmol/L BUN 6 L (7-17) mg/dL Creatinine 1.01 (0.52-1.04) mg/dL Estimated GFR > 60 (>60) mL/min BUN/Creatinine Ratio 5.9 L (6-22) Glucose 96 (70-100) mg/dL Lactate 2.8 H (0.7-2.1) mmol/L Uric Acid (2.5-6.2) mg/dL Calcium 8.6 (8.4-10.2) mg/dL Total Bilirubin 1.4 H (0.2-1.3) mg/dL AST 276 H (14-36) IU/L ALT 211 H (<35) IU/L Alkaline Phosphatase 509 H (38-126) U/L Lactate Dehydrogenase (120-246) U/L C-Reactive Protein (<1.0) mg/dL Total Protein 7.2 (6.3-8.2) g/dL Albumin 3.7 (3.5-5.0) g/dL Globulin 3.5 (1.7-4.1) g/dL Albumin/Globulin Ratio 1.1 (1.0-2.8) Lipase 40 (23-300) U/L Procalcitonin 0.313 (<0.5) ng/mL Ur Bilirubin Confirm Positive H (Negative) Urine RBC None seen (0-5/HPF) Urine WBC 5-10/hpf H (0-5/HPF) Ur Squamous Epith Cells 5-10 /hpf H (0-5/HPF) Ur Transition Epith Cell 1-5/hpf (0-5/HPF) Urine Bacteria Moderate (10-30) H (None) Hyaline Casts 30-100/lpf (None) Vol Urine Centrifuged Low vol <10ml (spun) A Leuk/Lymph Viability Leuk/Lym Sample Descrip Leuk/Lym Gating Strategy Leuk/Lym Comment Leuk/Lym Immunophen Prof Leuk/Lym Phenotype Chart L/L Sign Pathologist CLL Flow Interpret A.calcoaceticus-baumannii cmplx PCR (Not Detect) Chlamy pneumoniae PCR (Not Detect) Adenovirus (PCR) (Not Detect) Bacteroides fragilis (Not Detect) B.parapertussis DNA PCR (Not Detecte) Wanda albicans (PCR) (Not Detect) Wanda auris (PCR) (Not Detect) C. glabrata (PCR) (Not Detect) C. krusei (PCR) (Not Detect) C. parapsilosis (PCR) (Not Detect) C. tropicalis (PCR) (Not Detect) Coronavirus OC43 (PCR) (Not Detect) Coronavirus HKU1 (PCR) (Not Detect) Coronavirus 229E (PCR) (Not Detect) SARS-CoV-2 (PCR) (Not Detecte) Coronavirus NL63 (PCR) (Not Detect) C. neoform/gattii (PCR) (Not Detect) Enterobacterales (PCR) (Not Detect) E. cloacae complex PCR (Not Detect) Enterococc faecalis PCR (Not Detect) Enterococc faecium PCR (Not Detect) E. coli (PCR) (Not Detect) H. influenzae (PCR) (Not Detect) Hepatitis A IgM Ab (Negative) Hep Bs Antigen (Negative) Hep B Core IgM Ab (Negative) Hepatitis C Antibody (Non Reactive) Hep C Ab Signal/Cutoff (.) Human Metapneumovir PCR (Not Detect) Influenza Type A (PCR) (Not Detect) Influenza Type B (PCR) (Not Detect) Klebsiella aerogenes (PCR) (Not Detect) Klebsiella oxytoca PCR (Not Detect) Klebsiella pneumoniae (Not Detect) List. monocytogenes PCR (Not Detect) M. pneumoniae (PCR) (Not Detect) N. meningitidis (PCR) (Not Detect) Parainfluenza 1 (PCR) (Not Detect) Parainfluenza 2 (PCR) (Not Detect) Parainfluenza 3 (PCR) (Not Detect) Parainfluenza 4 (PCR) (Not Detect) Proteus species (PCR) (Not Detect) RSV (PCR) (Not Detect) Entero/Rhino (PCR) (Not Detect) Salmonella spp. (PCR) (Not Detect) Serratia marcescens PCR (Not Detect) Staphylococcus sp PCR (Not Detect) Staph aureus (PCR) (Not Detect) mecA/C & MREJ Resist Gene (Not Detect) mecA/C-Methicil Resis Gene (Not Detect) mcr-1 Colistin Res Gene PCR (Not Detect) Staph epidermidis (PCR) (Not Detect) Staph lugdunensis PCR (Not Detect) S. maltophilia (PCR) (Not Detect) Streptococcus sp PCR (Not Detect) Group A Strep (PCR) (Not Detect) Strep agalactiae (PCR) (Not Detect) Strep pneumoniae (PCR) (Not Detect) P. aeruginosa (PCR) (Not Detect) Joelle/B-Vanco Res Genes (Not Detect) blaIMP Car res Gene PCR (Not Detect) KPC-Carbap Res Gene PCR (Not Detect) blaNDM Car Res Gene PCR (Not Detect) OXA-48 Carbapenem Resis Gene (PCR) (Not Detect) blaVIM Car Res Gene PCR (Not Detect) CTX-M Gene Resistance (PCR) (Not Detect) CLL (FISH) Add Info CLL Prog Comp Assess 11/20/23 11/20/23 11/20/23 Range/Units 14:51 15:15 15:50 WBC (4.5-11.0) X10^3/uL RBC (4.0-5.2) X10^6/uL Hgb (12.0-16.0) g/dL Hct (36-46) % MCV (80-100) fL MCH (26-34) PG MCHC (30-36) % RDW (11.6-14.8) % Plt Count (150-400) X10^3/uL Neut % (Auto) Lymph % (Auto) [place] % (Auto) Eos % (Auto) Baso % (Auto) Neut # (Auto) (0905-1750) /uL Lymph # (Auto) [place] # (Auto) Eos # (Auto) (0-450) /uL Baso # (Auto) Total Counted Seg Neutrophils % (38-70) % Lymphocytes % (Manual) (25-45) % Atypical Lymphs % ( - 0) % Monocytes % (Manual) (2-11) % Neutrophils # (Manual) (6319-1922) /uL Smudge Cells RBC Morphology Anisocytosis Rouleaux Smear Path Review PT (9.4-12.5) SECONDS INR (0.9-1.3) APTT (25.1-36.5) SECONDS Fibrinogen (238-498) mg/dL Sodium (137-145) mmol/L Potassium (3.4-5.1) mmol/L Chloride (98-107) mmol/L Carbon Dioxide (22-32) mmol/L BUN (7-17) mg/dL Creatinine (0.52-1.04) mg/dL Estimated GFR (>60) mL/min BUN/Creatinine Ratio (6-22) Glucose (70-100) mg/dL Lactate (0.7-2.1) mmol/L Uric Acid (2.5-6.2) mg/dL Calcium (8.4-10.2) mg/dL Total Bilirubin (0.2-1.3) mg/dL AST (14-36) IU/L ALT (<35) IU/L Alkaline Phosphatase (38-126) U/L Lactate Dehydrogenase (120-246) U/L C-Reactive Protein (<1.0) mg/dL Total Protein (6.3-8.2) g/dL Albumin (3.5-5.0) g/dL Globulin (1.7-4.1) g/dL Albumin/Globulin Ratio (1.0-2.8) Lipase (23-300) U/L Procalcitonin (<0.5) ng/mL Ur Bilirubin Confirm (Negative) Urine RBC (0-5/HPF) Urine WBC (0-5/HPF) Ur Squamous Epith Cells (0-5/HPF) Ur Transition Epith Cell (0-5/HPF) Urine Bacteria (None) Hyaline Casts (None) Vol Urine Centrifuged Leuk/Lymph Viability Leuk/Lym Sample Descrip Leuk/Lym Gating Strategy Leuk/Lym Comment Leuk/Lym Immunophen Prof Leuk/Lym Phenotype Chart L/L Sign Pathologist CLL Flow Interpret A.calcoaceticus-baumannii cmplx PCR Not detected (Not Detect) Chlamy pneumoniae PCR Not detected (Not Detect) Adenovirus (PCR) Not detected (Not Detect) Bacteroides fragilis Not detected (Not Detect) B.parapertussis DNA PCR Not detected (Not Detecte) Wanda albicans (PCR) Not detected (Not Detect) Wanda auris (PCR) Not detected (Not Detect) C. glabrata (PCR) Not detected (Not Detect) C. krusei (PCR) Not detected (Not Detect) C. parapsilosis (PCR) Not detected (Not Detect) C. tropicalis (PCR) Not detected (Not Detect) Coronavirus OC43 (PCR) Not detected (Not Detect) Coronavirus HKU1 (PCR) Not detected (Not Detect) Coronavirus 229E (PCR) Not detected (Not Detect) SARS-CoV-2 (PCR) Not detected (Not Detecte) Coronavirus NL63 (PCR) Not detected (Not Detect) C. neoform/gattii (PCR) Not detected (Not Detect) Enterobacterales (PCR) Not detected (Not Detect) E. cloacae complex PCR Not detected (Not Detect) Enterococc faecalis PCR Not detected (Not Detect) Enterococc faecium PCR Not detected (Not Detect) E. coli (PCR) Not detected (Not Detect) H. influenzae (PCR) Not detected (Not Detect) Hepatitis A IgM Ab (Negative) Hep Bs Antigen (Negative) Hep B Core IgM Ab (Negative) Hepatitis C Antibody (Non Reactive) Hep C Ab Signal/Cutoff (.) Human Metapneumovir PCR Not detected (Not Detect) Influenza Type A (PCR) Not detected (Not Detect) Influenza Type B (PCR) Not detected (Not Detect) Klebsiella aerogenes (PCR) Not detected (Not Detect) Klebsiella oxytoca PCR Not detected (Not Detect) Klebsiella pneumoniae Not detected (Not Detect) List. monocytogenes PCR Not detected (Not Detect) M. pneumoniae (PCR) Not detected (Not Detect) N. meningitidis (PCR) Not detected (Not Detect) Parainfluenza 1 (PCR) Not detected (Not Detect) Parainfluenza 2 (PCR) Not detected (Not Detect) Parainfluenza 3 (PCR) Not detected (Not Detect) Parainfluenza 4 (PCR) Not detected (Not Detect) Proteus species (PCR) Not detected (Not Detect) RSV (PCR) Not detected (Not Detect) Entero/Rhino (PCR) Not detected (Not Detect) Salmonella spp. (PCR) Not detected (Not Detect) Serratia marcescens PCR Not detected (Not Detect) Staphylococcus sp PCR Detected (Not Detect) Staph aureus (PCR) Not detected (Not Detect) mecA/C & MREJ Resist Gene Not applicable (Not Detect) mecA/C-Methicil Resis Gene Not detected (Not Detect) mcr-1 Colistin Res Gene PCR Not applicable (Not Detect) Staph epidermidis (PCR) Detected (Not Detect) Staph lugdunensis PCR Not detected (Not Detect) S. maltophilia (PCR) Not detected (Not Detect) Streptococcus sp PCR Not detected (Not Detect) Group A Strep (PCR) Not detected Negative (Not Detect) Strep agalactiae (PCR) Not detected (Not Detect) Strep pneumoniae (PCR) Not detected (Not Detect) P. aeruginosa (PCR) Not detected (Not Detect) Joelle/B-Vanco Res Genes Not applicable (Not Detect) blaIMP Car res Gene PCR Not applicable (Not Detect) KPC-Carbap Res Gene PCR Not applicable (Not Detect) blaNDM Car Res Gene PCR Not applicable (Not Detect) OXA-48 Carbapenem Resis Gene (PCR) Not applicable (Not Detect) blaVIM Car Res Gene PCR Not applicable (Not Detect) CTX-M Gene Resistance (PCR) Not applicable (Not Detect) CLL (FISH) Add Info CLL Prog Comp Assess 11/20/23 11/20/23 11/20/23 Range/Units 17:00 19:59 22:30 WBC 111.9 H* (4.5-11.0) X10^3/uL RBC 4.23 (4.0-5.2) X10^6/uL Hgb 12.8 (12.0-16.0) g/dL Hct 39.3 (36-46) % MCV 93.1 (80-100) fL MCH 30.3 (26-34) PG MCHC 32.6 (30-36) % RDW 15.3 H (11.6-14.8) % Plt Count 149 L (150-400) X10^3/uL Neut % (Auto) Not Reportable Lymph % (Auto) Not Reportable [place] % (Auto) Not Reportable Eos % (Auto) Not Reportable Baso % (Auto) Not Reportable Neut # (Auto) (7898-9953) /uL Lymph # (Auto) Not Reportable [place] # (Auto) Not Reportable Eos # (Auto) (0-450) /uL Baso # (Auto) Not Reportable Total Counted 100 Seg Neutrophils % 19.0 L (38-70) % Lymphocytes % (Manual) 33.0 (25-45) % Atypical Lymphs % 6.0 H ( - 0) % Monocytes % (Manual) 42.0 H (2-11) % Neutrophils # (Manual) 06260 H (6395-9805) /uL Smudge Cells 3+ H RBC Morphology Normal morphology Anisocytosis Rouleaux Smear Path Review PT (9.4-12.5) SECONDS INR (0.9-1.3) APTT (25.1-36.5) SECONDS Fibrinogen 185 L (238-498) mg/dL Sodium (137-145) mmol/L Potassium (3.4-5.1) mmol/L Chloride (98-107) mmol/L Carbon Dioxide (22-32) mmol/L BUN (7-17) mg/dL Creatinine (0.52-1.04) mg/dL Estimated GFR (>60) mL/min BUN/Creatinine Ratio (6-22) Glucose (70-100) mg/dL Lactate 2.1 1.8 (0.7-2.1) mmol/L Uric Acid 6.7 H (2.5-6.2) mg/dL Calcium (8.4-10.2) mg/dL Total Bilirubin (0.2-1.3) mg/dL AST (14-36) IU/L ALT (<35) IU/L Alkaline Phosphatase (38-126) U/L Lactate Dehydrogenase 1512 H (120-246) U/L C-Reactive Protein 3.3 H (<1.0) mg/dL Total Protein (6.3-8.2) g/dL Albumin (3.5-5.0) g/dL Globulin (1.7-4.1) g/dL Albumin/Globulin Ratio (1.0-2.8) Lipase (23-300) U/L Procalcitonin (<0.5) ng/mL Ur Bilirubin Confirm (Negative) Urine RBC (0-5/HPF) Urine WBC (0-5/HPF) Ur Squamous Epith Cells (0-5/HPF) Ur Transition Epith Cell (0-5/HPF) Urine Bacteria (None) Hyaline Casts (None) Vol Urine Centrifuged Leuk/Lymph Viability Not Reportable Leuk/Lym Sample Descrip Not Reportable Leuk/Lym Gating Strategy Not Reportable Leuk/Lym Comment Not Reportable Leuk/Lym Immunophen Prof Not Reportable Leuk/Lym Phenotype Chart Not Reportable L/L Sign Pathologist CLL Flow Interpret Not Reportable A.calcoaceticus-baumannii cmplx PCR (Not Detect) Chlamy pneumoniae PCR (Not Detect) Adenovirus (PCR) (Not Detect) Bacteroides fragilis (Not Detect) B.parapertussis DNA PCR (Not Detecte) Wanda albicans (PCR) (Not Detect) Wanda auris (PCR) (Not Detect) C. glabrata (PCR) (Not Detect) C. krusei (PCR) (Not Detect) C. parapsilosis (PCR) (Not Detect) C. tropicalis (PCR) (Not Detect) Coronavirus OC43 (PCR) (Not Detect) Coronavirus HKU1 (PCR) (Not Detect) Coronavirus 229E (PCR) (Not Detect) SARS-CoV-2 (PCR) (Not Detecte) Coronavirus NL63 (PCR) (Not Detect) C. neoform/gattii (PCR) (Not Detect) Enterobacterales (PCR) (Not Detect) E. cloacae complex PCR (Not Detect) Enterococc faecalis PCR (Not Detect) Enterococc faecium PCR (Not Detect) E. coli (PCR) (Not Detect) H. influenzae (PCR) (Not Detect) Hepatitis A IgM Ab Negative (Negative) Hep Bs Antigen Negative (Negative) Hep B Core IgM Ab Negative (Negative) Hepatitis C Antibody Non reactive (Non Reactive) Hep C Ab Signal/Cutoff Comment (.) Human Metapneumovir PCR (Not Detect) Influenza Type A (PCR) (Not Detect) Influenza Type B (PCR) (Not Detect) Klebsiella aerogenes (PCR) (Not Detect) Klebsiella oxytoca PCR (Not Detect) Klebsiella pneumoniae (Not Detect) List. monocytogenes PCR (Not Detect) M. pneumoniae (PCR) (Not Detect) N. meningitidis (PCR) (Not Detect) Parainfluenza 1 (PCR) (Not Detect) Parainfluenza 2 (PCR) (Not Detect) Parainfluenza 3 (PCR) (Not Detect) Parainfluenza 4 (PCR) (Not Detect) Proteus species (PCR) (Not Detect) RSV (PCR) (Not Detect) Entero/Rhino (PCR) (Not Detect) Salmonella spp. (PCR) (Not Detect) Serratia marcescens PCR (Not Detect) Staphylococcus sp PCR (Not Detect) Staph aureus (PCR) (Not Detect) mecA/C & MREJ Resist Gene (Not Detect) mecA/C-Methicil Resis Gene (Not Detect) mcr-1 Colistin Res Gene PCR (Not Detect) Staph epidermidis (PCR) (Not Detect) Staph lugdunensis PCR (Not Detect) S. maltophilia (PCR) (Not Detect) Streptococcus sp PCR (Not Detect) Group A Strep (PCR) (Not Detect) Strep agalactiae (PCR) (Not Detect) Strep pneumoniae (PCR) (Not Detect) P. aeruginosa (PCR) (Not Detect) Joelle/B-Vanco Res Genes (Not Detect) blaIMP Car res Gene PCR (Not Detect) KPC-Carbap Res Gene PCR (Not Detect) blaNDM Car Res Gene PCR (Not Detect) OXA-48 Carbapenem Resis Gene (PCR) (Not Detect) blaVIM Car Res Gene PCR (Not Detect) CTX-M Gene Resistance (PCR) (Not Detect) CLL (FISH) Add Info Not Reportable CLL Prog Comp Assess Not Reportable 11/21/23 Range/Units 05:55 WBC 102.4 H* (4.5-11.0) X10^3/uL RBC 4.12 (4.0-5.2) X10^6/uL Hgb 12.6 (12.0-16.0) g/dL Hct 38.0 (36-46) % MCV 92.1 (80-100) fL MCH 30.5 (26-34) PG MCHC 33.1 (30-36) % RDW 15.1 H (11.6-14.8) % Plt Count 141 L (150-400) X10^3/uL Neut % (Auto) 17.1 L Lymph % (Auto) 79.0 H [place] % (Auto) 1.2 L Eos % (Auto) 0.3 L Baso % (Auto) 2.4 H Neut # (Auto) 18 L (9579-0000) /uL Lymph # (Auto) 81 L [place] # (Auto) 1 Eos # (Auto) 0 (0-450) /uL Baso # (Auto) 2 Total Counted 100 Seg Neutrophils % (38-70) % Lymphocytes % (Manual) (25-45) % Atypical Lymphs % ( - 0) % Monocytes % (Manual) (2-11) % Neutrophils # (Manual) 0 L (6828-5891) /uL Smudge Cells RBC Morphology Not Reportable Anisocytosis 1+ H Rouleaux Smear Path Review PT (9.4-12.5) SECONDS INR (0.9-1.3) APTT (25.1-36.5) SECONDS Fibrinogen (238-498) mg/dL Sodium 136 L (137-145) mmol/L Potassium 5.0 (3.4-5.1) mmol/L Chloride 104 (98-107) mmol/L Carbon Dioxide 23 (22-32) mmol/L BUN 8 (7-17) mg/dL Creatinine 0.75 (0.52-1.04) mg/dL Estimated GFR > 60 (>60) mL/min BUN/Creatinine Ratio 10.7 (6-22) Glucose 134 H (70-100) mg/dL Lactate (0.7-2.1) mmol/L Uric Acid (2.5-6.2) mg/dL Calcium 7.6 L (8.4-10.2) mg/dL Total Bilirubin 1.0 (0.2-1.3) mg/dL AST 236 H (14-36) IU/L ALT 185 H (<35) IU/L Alkaline Phosphatase 391 H (38-126) U/L Lactate Dehydrogenase (120-246) U/L C-Reactive Protein (<1.0) mg/dL Total Protein 6.1 L (6.3-8.2) g/dL Albumin 2.9 L (3.5-5.0) g/dL Globulin 3.2 (1.7-4.1) g/dL Albumin/Globulin Ratio 0.9 L (1.0-2.8) Lipase (23-300) U/L Procalcitonin (<0.5) ng/mL Ur Bilirubin Confirm (Negative) Urine RBC (0-5/HPF) Urine WBC (0-5/HPF) Ur Squamous Epith Cells (0-5/HPF) Ur Transition Epith Cell (0-5/HPF) Urine Bacteria (None) Hyaline Casts (None) Vol Urine Centrifuged Leuk/Lymph Viability Leuk/Lym Sample Descrip Leuk/Lym Gating Strategy Leuk/Lym Comment Leuk/Lym Immunophen Prof Leuk/Lym Phenotype Chart L/L Sign Pathologist CLL Flow Interpret A.calcoaceticus-baumannii cmplx PCR (Not Detect) Chlamy pneumoniae PCR (Not Detect) Adenovirus (PCR) (Not Detect) Bacteroides fragilis (Not Detect) B.parapertussis DNA PCR (Not Detecte) Wanda albicans (PCR) (Not Detect) Wanda auris (PCR) (Not Detect) C. glabrata (PCR) (Not Detect) C. krusei (PCR) (Not Detect) C. parapsilosis (PCR) (Not Detect) C. tropicalis (PCR) (Not Detect) Coronavirus OC43 (PCR) (Not Detect) Coronavirus HKU1 (PCR) (Not Detect) Coronavirus 229E (PCR) (Not Detect) SARS-CoV-2 (PCR) (Not Detecte) Coronavirus NL63 (PCR) (Not Detect) C. neoform/gattii (PCR) (Not Detect) Enterobacterales (PCR) (Not Detect) E. cloacae complex PCR (Not Detect) Enterococc faecalis PCR (Not Detect) Enterococc faecium PCR (Not Detect) E. coli (PCR) (Not Detect) H. influenzae (PCR) (Not Detect) Hepatitis A IgM Ab (Negative) Hep Bs Antigen (Negative) Hep B Core IgM Ab (Negative) Hepatitis C Antibody (Non Reactive) Hep C Ab Signal/Cutoff (.) Human Metapneumovir PCR (Not Detect) Influenza Type A (PCR) (Not Detect) Influenza Type B (PCR) (Not Detect) Klebsiella aerogenes (PCR) (Not Detect) Klebsiella oxytoca PCR (Not Detect) Klebsiella pneumoniae (Not Detect) List. monocytogenes PCR (Not Detect) M. pneumoniae (PCR) (Not Detect) N. meningitidis (PCR) (Not Detect) Parainfluenza 1 (PCR) (Not Detect) Parainfluenza 2 (PCR) (Not Detect) Parainfluenza 3 (PCR) (Not Detect) Parainfluenza 4 (PCR) (Not Detect) Proteus species (PCR) (Not Detect) RSV (PCR) (Not Detect) Entero/Rhino (PCR) (Not Detect) Salmonella spp. (PCR) (Not Detect) Serratia marcescens PCR (Not Detect) Staphylococcus sp PCR (Not Detect) Staph aureus (PCR) (Not Detect) mecA/C & MREJ Resist Gene (Not Detect) mecA/C-Methicil Resis Gene (Not Detect) mcr-1 Colistin Res Gene PCR (Not Detect) Staph epidermidis (PCR) (Not Detect) Staph lugdunensis PCR (Not Detect) S. maltophilia (PCR) (Not Detect) Streptococcus sp PCR (Not Detect) Group A Strep (PCR) (Not Detect) Strep agalactiae (PCR) (Not Detect) Strep pneumoniae (PCR) (Not Detect) P. aeruginosa (PCR) (Not Detect) Joelle/B-Vanco Res Genes (Not Detect) blaIMP Car res Gene PCR (Not Detect) KPC-Carbap Res Gene PCR (Not Detect) blaNDM Car Res Gene PCR (Not Detect) OXA-48 Carbapenem Resis Gene (PCR) (Not Detect) blaVIM Car Res Gene PCR (Not Detect) CTX-M Gene Resistance (PCR) (Not Detect) CLL (FISH) Add Info CLL Prog Comp Assess Urine Dip Bedside Urine Glucose Negative Bedside Urine Bilirubin +++ 4 Bedside Urine Ketone ++ 40 Urine Specific Perley 1.020 Bedside Urine Occult Blood - Negative Bedside Urine pH 6.0 Bedside Urine Protein ++ 100 Bedside Urine Urobilinogen 1+ 2mg Bedside Urine Nitrite + Positive Bedside Urine Leukocytes + 70 Esterase MDM Narrative Medical decision making narrative: 53-year-old female with about 4 weeks duration of sore throat symptoms, prior evaluation include rapid strep screen and Monospot negative, empiric trial of penicillin 10 day course from a telemedicine consult that was completed 2 weeks ago, having 10 days duration of diffuse rash and persisting sore throat symptoms. Maculopapular rash truncal, erythema periorbital with some lower lid edema but no scleral injection. Bacteriuria, urine culture requested, blood culture requested, IV ceftriaxone requested. White blood cell count [id number], with differential 29% neutrophils, 19.5% lymphocytes, 1% atypical lymphocytes, 50% monocyte. No mention of abnormal nucleated cells. Pathology review of smear ordered, [facility]. 1800, case discussed with Aliya vences, clinical information relayed, weight listed. BED CONTROL SPECIALIST reports patient is wait listed currently at /[facility], [email or web address]. [facility] not available currently due to saturation, [facility] to be contacted. 1899, case discussed with [facility] intake nurse, clinical information relayed, possible bed at [facility]. Requesting photo of the rash to be sent, to be e-mail attached and e-mailed to [email or web address] 1944, case discussed with hematology oncology Dr Angelo at [facility], including the differential, possible severe reactive leukocytosis, but does recommend patient have flow cytometry which can not be done here, aware patient is wait listed, can consult if beds available. 2100, repeat white blood cell count 111k not decreasing. Rash same. Photos rash and throat sent to [facility] system. [facility] still currently [facility] listed [facility] [place], Aliya Burdick. No callback yet from [facility]. Signed out to Dr Walton 946pm care is assumed. Patient is independently evaluated. Labs reviewed Very sore throat, treated with the amoxicillin now has total body rash with question of vasculitis, continued sore throat comes in for further evaluation dramatic leukocytosis with liver study abnormalities slightly elevated lactic acid. She is responded to fluids because there was a possibility of infectious etiology ceftriaxone is given, steroids are given with possibility of vasculitic allergic reaction. Extensive discussion with multiple hospitals trying to find a bed availability for this woman. At this point she remains tachycardic, slightly tachypneic blood pressure is 121/56. Still complaining of sore throat. 10pm Discussion with Dr Fede Dominguez, leukemia specialist at the [facility]. Reviewed all of the blood work. He noted that the findings were all mature cell lines. There was no evidence of blasts, severe anemia,and pt has normal H&H and normal renal function. He did not feel that this was an acute leukemia. Possibility DRESS syndrome given the rash and the liver abnormalities, his recommendation was adding uric acid, LDH, CRP, fibrinogen, viral hepatology panel as well as flow cytometry. He recommended adenovirus, HSV blood PCR testing that is not available at our hospital. Will talk with the medicine service at the [facility] and then discuss bed availability. All of these findings reviewed in detail with the patient and her . Questions were answered. She remains hemodynamically stable with no signs of impending respiratory distress. 1033pm Discussedw ith Dr Catie Lizarraga. Patient is accepted to [facility]. Anticipated bed availability in the morning. They will call back when bed is available. We will anticipate routine blood work of a CBC and CMP around 6:00 a.m. in the morning. Patient and her are notified of current plans, questions are answered. LDH Elevated 1512 BOAT BUILDER elevated 3.3 Uric acid elevated 6.7 Fibrinogen low 185 Discharge Plan Departure Patient Disposition: [facility] Clinical Impression: Leukocytosis, Sore throat, Rash, Bacteriuria, Abnormal liver function tests
[2023-11-20 16:46] LABS: Reflexed Lactate in 2 Hours Y
[2023-11-20 16:46] LABS: Adenovirus Not Detected (Not Detect); B. parapertussis Not Detected (Not Detecte); Bordetella pertussis Not Detected (Not Detect); Chlamydophila pneumoniae Not Detected (Not Detect); Coronavirus 229E Not Detected (Not Detect); Coronavirus HKU1 Not Detected (Not Detect); Coronavirus NL 63 Not Detected (Not Detect); Coronavirus OC43 Not Detected (Not Detect); Human Metapneumovirus Not Detected (Not Detect); Human Rhinovirus/Enterovirus Not Detected (Not Detect); Influenza A Not Detected (Not Detect); Influenza B Not Detected (Not Detect); Mycoplasma pneumoniae Not Detected (Not Detect); Parainfluenza Virus 1 Not Detected (Not Detect); Parainfluenza Virus 2 Not Detected (Not Detect); Parainfluenza Virus 3 Not Detected (Not Detect); Parainfluenza Virus 4 Not Detected (Not Detect); Respiratory Syncytial Virus Not Detected (Not Detect); SARS- CoV-2 Not Detected (Not Detecte)
[2023-11-20 16:47] LABS: Ictotest Urine Positive (Negative)
[2023-11-20] MEDS: cefTRIAXone 1,000 MG in SODIUM CHLORIDE 0.9% 100 ML 200 MG IV (16:48)
[2023-11-20 17:06] LABS: Bacteria Urine Moderate (10-30); RBC Urine None Seen (0-5/HPF); Squamous Epithelial Cell Urine 5-10 /HPF (0-5/HPF); Transitional Epi Cells Urine 1-5/HPF (0-5/HPF); Urine Volume Low Vol <10mL (spun); WBC Urine 5-10/HPF (0-5/HPF)
[2023-11-20 17:07] LABS: Hyaline Casts Urine 30-100/LPF
[2023-11-20 17:24] LABS: Lactate 2HR (Lactic Acid Rflx) 2.1 mmol/L (0.7-2.1)
[2023-11-20 20:22] LABS: Hematocrit 39.3 % (36-46); Hemoglobin 12.8 g/dL (12.0-16.0); Mean Corpuscular HGB Conc 32.6 % (30-36); Mean Corpuscular Hemoglobin 30.3 PG (26-34); Mean Corpuscular Volume 93.1 fL (80-100); Platelet Count 149 X10^3/uL (150-400); Red Blood Cell Count 4.23 X10^6/uL (4.0-5.2); Red Cell Distribution Width 15.3 % (11.6-14.8)
[2023-11-20 20:35] LABS: Add Manual Diff / Slide Review YES; White Blood Cell Count 111.9 X10^3/uL (4.5-11.0)
[2023-11-20 21:29] LABS: Neutrophils Absolute Manual 21261 /uL (3000-5900); Total Cells Counted 100
[2023-11-20] MEDS: methylPREDNISolone 125 MG/2 ML VIAL IV (21:35)
[2023-11-20 21:42] LABS: RBC Morphology Normal Morphology; Smudge Cells 3+
[2023-11-20] MEDS: LORazepam 2 MG/ML INJ 0.5 MG IV (21:45)
--- NOTE | 2023-11-20 22:14 | PC.NURSE ---
patient took home dose of Lamotrigine 100mg.
[2023-11-20] MEDS: SERTRALINE 50 MG TABLET 25 MG PO (22:22)
[2023-11-20 22:59] LABS: Lactate (Lactic Acid) 1.8 mmol/L (0.7-2.1)
[2023-11-20 23:01] LABS: Fibrinogen 185 mg/dL (238-498)
[2023-11-20 23:03] LABS: C-Reactive Protein Quant 3.3 mg/dL (<1.0); Uric Acid 6.7 mg/dL (2.5-6.2)
[2023-11-20 23:06] LABS: Lactate Dehydrogenase 1512 U/L (120-246)
--- NOTE | 2023-11-20 23:06 | PC.NURSE ---
Patient continues to appear flushed in her face with some facial swelling. Denies SOB. Reports slight improvement in difficulty swallowing. Was able to tolerate PO fluids and take home meds.
[2023-11-21] VITALS (19 sets, daily range): BP systolic 122–133; BP diastolic 63–84; PULSE 97–117; RESP 9–37; O2SAT 90–95
--- NOTE | 2023-11-21 03:20 | PC.NURSE ---
rash noted to pt's back and lower abd, pt states she did have sores in her mouth but now her tongue just feels dry and rough, also c/o pain with swallowing, tonsils noted swollen with blisters noted
--- NOTE | 2023-11-21 05:58 | PC.NURSE ---
pt awake, blood drawn for am labs, pt states her throat is actually feeling some better, pt given popsicle and breakfast tray ordered
[2023-11-21 06:11] LABS: Hemoglobin 12.6 g/dL (12.0-16.0); Mean Corpuscular HGB Conc 33.1 % (30-36); Mean Corpuscular Hemoglobin 30.5 PG (26-34); Mean Corpuscular Volume 92.1 fL (80-100); Platelet Count 141 X10^3/uL (150-400); Red Blood Cell Count 4.12 X10^6/uL (4.0-5.2); Red Cell Distribution Width 15.1 % (11.6-14.8)
[2023-11-21 06:13] LABS: White Blood Cell Count 102.4 X10^3/uL (4.5-11.0)
[2023-11-21 06:15] LABS: Alanine Aminotransferase 185 IU/L (<35); Albumin 2.9 g/dL (3.5-5.0); Albumin Globulin Ratio 0.9 (1.0-2.8); Alkaline Phosphatase 391 U/L (38-126); Aspartate Aminotransferase 236 IU/L (14-36); BUN Creatinine Ratio 10.7 (6-22); Blood Urea Nitrogen 8 mg/dL (7-17); Calcium 7.6 mg/dL (8.4-10.2); Carbon Dioxide 23 mmol/L (22-32); Chloride 104 mmol/L (98-107); Estimated Glomerular Filt Rate > 60 mL/min (>60); Globulin 3.2 g/dL (1.7-4.1); Glucose 134 mg/dL (70-100); HEMOLYSIS < 15 (0-50); Sodium 136 mmol/L (137-145); Total Protein 6.1 g/dL (6.3-8.2)
[2023-11-21 07:13] LABS: Basophils Percent Auto 2.4 % (0-2); Eosinophils Percent Auto 0.3 % (2-4); Monocytes Percent Auto 1.2 % (3-14); Neutrophils Percent Auto 17.1 % (50-75)
[2023-11-21 07:14] LABS: Basophils Absolute Auto 2 /uL (0-100); Eosinophils Absolute Auto 0 /uL (0-450); Lymphocytes Absolute Auto 81 /uL (1100-4500); Monocytes Absolute Auto 1 /uL (0-900); Neutrophils Absolute Auto 18 /uL (1500-7000); Neutrophils Absolute Manual 0 /uL (3000-5900); Total Cells Counted 100
[2023-11-21 07:15] LABS: Add Manual Diff / Slide Review NO
[2023-11-21 07:16] LABS: Anisocytosis 1+
[2023-11-21] MEDS: methylPREDNISolone 125 MG/2 ML VIAL 60 MG IV (07:42)
[2023-11-21] MEDS: methylPREDNISolone 125 MG/2 ML VIAL 80 MG IV (14:59)
[2023-11-21 15:51] LABS: Acinetobacter calcoa-baumannii Not Detected (Not Detect); Bacteroides fragilis Not Detected (Not Detect); Candida albicans Not Detected (Not Detect); Candida auris Not Detected (Not Detect); Candida glabrata Not Detected (Not Detect); Candida krusei Not Detected (Not Detect); Candida parapsilosis Not Detected (Not Detect); Candida tropicalis Not Detected (Not Detect); Cryptococcus neoformans/gatti Not Detected (Not Detect); Enterobacter cloacae complex Not Detected (Not Detect); Enterobacterales Not Detected (Not Detect); Enterococcus faecalis Not Detected (Not Detect); Enterococcus faecium Not Detected (Not Detect); Haemophilus influenzae Not Detected (Not Detect); Klebsiella aerogenes Not Detected (Not Detect); Listeria monocytogenes Not Detected (Not Detect); Neisseria meningitidis Not Detected (Not Detect); Proteus species Not Detected (Not Detect); Pseudomonas aeruginosa Not Detected (Not Detect); Salmonella species Not Detected (Not Detect); Serratia marcescens Not Detected (Not Detect); Staphylococcus epidermidis Detected (Not Detect); Staphylococcus lugdunensis Not Detected (Not Detect); Staphylococcus species Detected (Not Detect); Stenotrophomonas maltophilia Not Detected (Not Detect); Streptococcus agalactiae (Gr B Not Detected (Not Detect); Streptococcus pneumonia Not Detected (Not Detect); Streptococcus pyogenes (Gr A) Not Detected (Not Detect); Streptococcus species Not Detected (Not Detect); mecA/C Resistance Not Detected (Not Detect)
[2023-11-22 00:19] LABS: HBsAg Screen Negative (Negative); Hepatitis A Antibody IgM Negative (Negative); Hepatitis B Core Antibody IgM Negative (Negative); Hepatitis C Antibody Non Reactive (Non Reactive)
== END 2023-11-21 15:38 | disposition short-term general hospital (02) ==
PROVIDERS: Emergency Medicine; Emergency Provider Emergency Medicine
DX: R82.71 Bacteriuria (principal); J02.9 Acute pharyngitis, unspecified; D72.829 Elevated white blood cell count, unspecified; R79.89 Other specified abnormal findings of blood chemistry; R00.0 Tachycardia, unspecified; Z11.52 Encounter for screening for COVID-19
CPT/HCPCS: 36415; 71045; 80053; 80074; 81003; 81015; 83605; 83615; 83690; 84145; 84550; 85007; 85025; 85384; 85610; 85730; 86140; 87040; 87070; 87077; 87086; 87154; 87633; 87651; 88184; 96361; 96365; 96375; 96376; 99284; 99285; J0696; J2060; J2919